=== PATIENT | female | born 1970 | race Caucasian/White ===

== ENCOUNTER 2023-04-08 14:38 | Outpatient (CLI) | payer MEDICARE, OTHER, SELFPAY | END 2023-04-08 14:39 | disposition home or self-care (01) | PROVIDERS: PCP Family Medicine; Visit Provider Family Medicine | DX: M17.12 Unilateral primary osteoarthritis, left knee (principal); M25.562 Pain in left knee | CPT/HCPCS: 64454 ==

== ENCOUNTER 2023-04-29 12:52 | Outpatient (CLI) | payer MEDICARE, OTHER, SELFPAY | END 2023-04-29 12:53 | disposition home or self-care (01) | PROVIDERS: PCP Family Medicine; Visit Provider Family Medicine | DX: M17.12 Unilateral primary osteoarthritis, left knee (principal); M25.562 Pain in left knee | CPT/HCPCS: 64624; J2250; J2405; J3010 ==

== ENCOUNTER 2025-06-03 11:00 | Outpatient (CLI) | payer MEDICARE, OTHER, SELFPAY | END 2025-06-03 11:01 | disposition home or self-care (01) | PROVIDERS: PCP Family Medicine; Visit Provider Family Medicine | DX: M51.369 Other intervertebral disc degeneration, lumbar region without mention of lumbar back pain or lower extremity pain (principal); M54.16 Radiculopathy, lumbar region | CPT/HCPCS: 64483; J1100; Q9966 ==